=== PATIENT | female | born 1930 | race Caucasian/White ===

== ENCOUNTER 2018-10-12 06:46 | Inpatient (IN) | payer OTHER ==
[2018-10-01 09:30] LABS: ABSOLUTE BASOPHILS 0.1 thou/uL (0.0-0.2); ABSOLUTE EOSINOPHILS 0.1 thou/uL (0.0-0.7); ABSOLUTE LYMPHOCYTES 2.1 thou/uL (0.8-5.3); ABSOLUTE NEUTROPHILS 5.8 thou/uL (1.6-8.1); BASOPHILS 0.8 %; EOSINOPHILS 1.4 %; HEMATOCRIT 37.4 % (37.0-47.0); HEMOGLOBIN 12.2 gm/dL (12.0-15.0); LYMPHOCYTES 23.3 %; MCH 28.3 pg (26.0-34.0); MCHC 32.7 g/dL (28.0-37.0); MCV 86.7 fL (80.0-100.0); MONOCYTES 10.9 %; MPV 7.1 fl. (7.2-11.1); NUCLEATED RBCS 0 /100WBC; PLATELET COUNT* 358 thou/uL (150-400); POLYS 63.6 %; RBC 4.31 mil/uL (4.20-5.00); RDW-CV 15.1 % (10.5-14.5); WBC 9.1 thou/uL (4.0-11.0)
[2018-10-01 09:52] LABS: APTT 25.4 Seconds (25.0-31.3)
[2018-10-01 10:05] LABS: ALBUMIN 3.3 g/dL (3.4-5.0); CALCIUM 9.3 mg/dL (8.5-10.1); CREATININE 0.9 mg/dL (0.6-1.3); POTASSIUM 4.3 mmol/L (3.5-5.1); TOTAL BILIRUBIN 0.4 mg/dL (<0.1-1.0); TOTAL PROTEIN 6.8 g/dL (6.4-8.2)
[2018-10-01 10:48] LABS: ESR (SEDRATE) 30 mm/hr (0-30)
--- NOTE | 2018-10-01 13:46 | EKG ---
[place] [address] ELECTROCARDIOGRAM REPORT Name: HANDY RODRIGUEZ I Room: PRE IN [facility].#: [id number] Admission: Attend Phys: Jasbir Joiner Discharge: Date of : 32 Report #: [id number] THIS REPORT FOR: //name// [facility] Test Date: 2018-10-01 Test Time: 09:41:15 Pat Name: HANDY RODRIGUEZ Department: Room: Gender: F Cork Molder: : 1930 Requested By: Cody Mercado Order Number: [id number] Reading MD: Praneeth Rivera Measurements Intervals [place] Rate: 80 P: 36 CO: 204 QRS: 26 QRSD: 90 T: 38 QT: 382 QTc: 441 Interpretive Statements Sinus rhythm No previous ECG available for comparison Electronically Signed On 10-01-2018 13:45:57 CDT by Praneeth Rivera [email or web address] <ELECTRONICALLY SIGNED> By: Praneeth Rivera MD, [facility] 10/01/18 1345 0941 [id number] Praneeth Rivera MD, FACC /EPI
[~2018-10-12] VITALS: Ht 162.6 cm; Wt 59.0 kg
[~2018-10-12 06:46] MED LIST: ALOE VERA25 MG PO; ASPIRIN325 PO; COZAAR 25 MG TA25 M1 PO; NORVASC5 MG PO; PROBIOTIC1 EAC1 PO; SYNTHROID50 MCG PO; UNICOMPLEX M TA1 TA1 PO
[2018-10-12 10:32] VITALS: BP 134/74
--- NOTE | 2018-10-12 17:04 | NUR ---
PT ARRIVED ON UNIT FROM PACU AT 1640. PT A&Ox4. VITALS STABLE. ON 3LO2, CONTINUOUS PULSE OX IN PLACE. DRESSING IS CLEAN, DRY AND INTACT. TEDs, SCDs AND ICE PACK IN PLACE. NAUSEA AND PAIN CONTROLLED. IV IN L FA PATENT. CALL LIGHT WITHIN REACH. FALL PRECAUTIONS IN PLACE. WILL CONTINUE TO MONITOR.
[2018-10-12 20:15] VITALS: BP 126/59
[2018-10-12 23:32] VITALS: BP 102/53
--- NOTE | 2018-10-12 23:34 | NUR ---
INITAL ASSESMENT COMPLETED AT 2014. PT ASSISTED TO BEDSIDE COMMODE WITH GATE BELT AND WALKER. PT ON O2 AT 3 LITERS TO MAITAIN O2 SAT > 94%. PT POST OP ORIF OF RIGHT HIP. PT REPORTED SORE THROAT FROM ET TUBE. PAGED DR GARY AND RECIEVED ORDER FOR PRN CEPACOL LOZENGE AND CHLORACEPTIC SPRAY. PT GIVEN PRN OXYCODONE FOR PAIN WITH GOOD RESULTS. CALL LIGHT IN REACH, PT DEMONSTRATES PROPER USE.
[2018-10-13 00:34] VITALS: BP 109/57
[2018-10-13 04:00] VITALS: BP 107/56
[2018-10-13 05:21] LABS: HEMATOCRIT 30.5 % (37.0-47.0); HEMOGLOBIN 9.9 gm/dL (12.0-15.0)
--- NOTE | 2018-10-13 05:44 | NUR ---
PT PROGRESSING TOWARD GOALS. PT UP WITH ASSIST TO BEDSIDE COMMODE MULTIPLE TIMES DURING SHIFT. NO NAUSEA OR VOMITING DURING SHIFT. PT TAKING CLEAR LIQUIDS WITHOUT DIFFICULTY. PAIN CONTROLLED WITH PO MEDS. VITAL SIGNS WITHIN NORMAL LIMITS. WILL CONTINUE PLAN OF CARE.
[2018-10-13 08:00] VITALS: BP 118/61
--- NOTE | 2018-10-13 15:35 | NUR ---
SPOKE WITH PT.AND SON ,MG. PT.ALERT AND ORIENTED. SHE SAID SHE LIVES ALONE IN [place]. SHE IS GOING TO STAY WITH HER SON AND HIS TO RECUPERATE FROM HIP SURGERY. SHE HAS A SISTER AND OTHER RELATIVE THAT LIVES IN [place]. SHE SAID SHE AND HER SISTER TALK EVERY NIGHT ON THE PHONE. PT.STILL DRIVES AND IS INDEPENDENT WITH COOKING,LAUNDRY,SHOPPING ETC. SON WOULD LIKE HER TO USE [facility] ON [facility] FOR HER MEDS WHILE AT HIS HOME. CM WILL FOLLOW.
[2018-10-13 17:59] VITALS: BP 123/48
--- NOTE | 2018-10-13 18:53 | NUR ---
PT REMAINED A&Ox4. VITALS STABLE. IV IN L FA PATENT. DRESSING IS CLEAN, DRY AND INTACT. PAIN CONTROLLED WITH OXY IR. WORKED SOME WITH PT, NEEDS MORE WORK ON DISTANCE. ON 3LO2. CALL LIGHT WITHIN REACH. FALL PREACUTIONS IN PLACE.
[2018-10-13 19:45] VITALS: BP 123/44
--- NOTE | 2018-10-14 04:17 | NUR ---
ASSUMED CARE AT START OF SHIFT PT UP TO BSC WITH ASSIST NO CONCERNS VOICED DURING HOURLY ROUNDS. NO PAIN MEDICATION GIVEN THIS SHIFT , PT RESTING WELL THROUGHOUT HOURLY ROUNDS. DRESSING DRY AND INTACT TO HIP AREA.
[2018-10-14 04:49] LABS: HEMATOCRIT 23.7 % (37.0-47.0)
[2018-10-14 05:31] LABS: HEMOGLOBIN 7.9 gm/dL (12.0-15.0)
[2018-10-14 08:00] VITALS: BP 113/50
--- NOTE | 2018-10-14 18:15 | NUR ---
PT ALERT AND ORIENTED X 4. FORGETFUL @ TIMES. HARD OF HEARING. DENIES NAUSEA. DRESSING-C/D/I. RECEIVED PO OXYCODONE FOR PAIN RELIEF. PARTICIPATED WITH THERAPY DURING THE DAY. UP TO BSC X 1 WITH GAIT BELT. RECEIVED US IN AFTERNOON=NEG. THIGH HIGH TEDS BILAT. IV PATENT. OXYGEN @ 3 L/NC. PT WEARS SLEEVE ON RIGHT ARM FOR LYMPHADEMA. HOURLY ROUNDS MAINTAINED. CALL LIGHT WITHIN REACH.
[2018-10-15] VITALS (7 sets, daily range): BP systolic 102–139; BP diastolic 48–63
--- NOTE | 2018-10-15 06:01 | NUR ---
PATIENT HAS SLEPT WELL THROUGHOUT THE NIGHT. VSS ON 3L 02 VIA NASAL CANNULA. PAIN WELL CONTROLLED. DRESSING TO RIGHT HIP IS C/D/I, KEILA HOSE AND SCD'S IN PLACE. PATIENT IS UP WITH ASSIST X 1 WITH GAITBELT AND WALKER TO [facility]. IV IN LEFT FOREARM-SL. PATIENT INSTRUCTED TO USE CALL LIGHT WHEN NEEDING ASSISTANCE. HOURLY ROUNDS MADE. WILL CONTINUE WITH PLAN OF CARE AND NURSING TO MONITOR.
[2018-10-15 11:24] LABS: ABSOLUTE EOSINOPHILS 0.1 thou/uL (0.0-0.7); ABSOLUTE LYMPHOCYTES 1.5 thou/uL (0.8-5.3); ABSOLUTE MONOCYTES 1.5 thou/uL (0.0-1.2); ABSOLUTE NEUTROPHILS 8.7 thou/uL (1.6-8.1); BASOPHILS 0.4 %; EOSINOPHILS 1.2 %; HEMOGLOBIN 8.7 gm/dL (12.0-15.0); LYMPHOCYTES 12.8 %; MCH 29.4 pg (26.0-34.0); MCHC 33.4 g/dL (28.0-37.0); MCV 88.1 fL (80.0-100.0); MONOCYTES 12.5 %; MPV 7.3 fl. (7.2-11.1); NUCLEATED RBCS 0 /100WBC; PLATELET COUNT* 272 thou/uL (150-400); POLYS 73.1 %; RBC 2.95 mil/uL (4.20-5.00); RDW-CV 15.3 % (10.5-14.5); WBC 11.9 thou/uL (4.0-11.0)
[2018-10-15 11:30] LABS: CALCIUM 8.8 mg/dL (8.5-10.1); CREATININE 0.8 mg/dL (0.6-1.3); MAGNESIUM 1.9 mg/dL (1.8-2.4); POTASSIUM 4.5 mmol/L (3.5-5.1)
[2018-10-15 11:41] LABS: % SATURATION 4 % (20-39); IRON 9 ug/dL (50-175)
--- NOTE | 2018-10-15 14:41 | NUR ---
PT.'S FAMILY WOULD LIKE TO USE [facility] IN [facility] ON [address]. OBTAINED PT.'S MEDICATION INSURANCE CARD FROM PT.AND FAXED TO [facility] AT [employer] [facility]-[phone]. CALLED IN PRESCRIPTION FOR ELIQUIS WRITTEN TO [phone]. WILL CALL BACK FOR COPAY. SPOKE WITH [facility], CAROLYN. SHE SAID THEY WOULD LIKE THERAPY TO WORK WITH PT.ON GETTING IN AND OUT OF BED. INFORMED JLUIS/P.T. PT.AND FAMILY INFORMED THAT SHE WAS NOT DISCHARGING TODAY.
--- NOTE | 2018-10-15 17:28 | NUR ---
PT ALERT AND ORIENTED X 4. DENIES NAUSEA. RECEIVED OXYCODONE FOR PAIN OF RIGHT HIP. PARTICIPATED WITH THERAPIES DURING THE DAY. WAS ON OXYGEN @ 2 L/NC AT START OF SHIFT; CURRENTLY ON RA. REQUIRES MIN ASSIST WITH WALKER AND GAIT BELT FOR TRANSFERS AND AMBULATION. LABS DRAWN DURING DAY. IV PATENT. BED ALARM IN USE. MEPILEX DRESSING-C/D/I. HOURLY ROUNDS MAINTAINED. CALL LIGHT WITHIN REACH.
[2018-10-16] VITALS (7 sets, daily range): BP systolic 112–144; BP diastolic 48–54
--- NOTE | 2018-10-16 06:09 | NUR ---
Alert and oriented x 4. Rt anterior hip dressing clean,dry and intact. She is up with assist x 1 with walker and gaitbelt to the bathroom. She did have a temp of 99.9 at start of shift. Dr Miller was notified and order for tylenol was given. She's been afebrile since then. Also she had milk of mag and senakot at HS b/c she hasn't had a BM since 10/12. She had pain x 1. She has slept well.
[2018-10-16] MEDS ORDERED: ELIQUIS5 MG PO (10:43)
[2018-10-16] MEDS ORDERED: SENNA PLUS TAB1 EACH PO (10:43)
[2018-10-16] MEDS ORDERED: OXYCODONE HCL 55 MG PO (10:43)
--- NOTE | 2018-10-16 12:47 | NUR ---
Received order from physician to arrange home health. Pt states she plans on staying with her son and D-I-L in [place] on d/c from hospital. Pt was given choices and wants to use [facility]. Notified [facility] of d/c orders and they will contact pt re: visit time. No other needs identified.
--- NOTE | 2018-10-16 14:35 | NUR ---
PT GIVEN DISCHARGE INFORMATION, CARE NOTES, AND PRESCRIPTIONS. PT IV REMOVED. PT BELONGINGS GATHERED. PT LEFT VIA WHEELCHAIR WITH NURSING STAFF TO HOME WITH HOME HEALTH.
--- NOTE | 2018-10-19 15:48 | OP ---
[facility] [place] 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 OPERATION PERFORMED: Right total hip arthroplasty utilizing the anterior supine intermuscular approach. IMPLANTS UTILIZED: Are the followin. Taperloc porous-coated femoral component, 12 x 144 mm high offset. 2. A 36 mm ceramic head. 3. A G7, 52 mm acetabular shell. 4. A 36 mm G7 acetabular liner. 5. Two 6.5 mm bone screws, one which is 25 mm in length, the other 30 mm in length. 6. A +3 mm neck taper adapter. SURGEON: Cody Mercado DO PHYSICAL PLANT MANAGER: Jerome Forde DO SECOND PHYSICAL PLANT MANAGER: Mel Mercado DO ANESTHESIA: General plus local infiltration. ANTIBIOTICS: Ancef 2 grams IV. ESTIMATED BLOOD LOSS: 575 mL. FLUIDS: Lactated Ringer's. DRAINS: None. SPECIMENS: None. [address] [address] OPERATIVE REPORT Name: HANDY RODRIGUEZ I Room: [address] M.R.#: [id number] Admission: 10/12/18 Attend Phys: Jasbir Joiner Discharge: 10/16/18 Date of : 32 Report #: [id number] COMPLICATIONS: None. CONDITION: Stable. DISPOSITION: Stable to PACU to Med/Surg floor. INDICATIONS FOR PROCEDURE: The patient is a pleasant 87-year-old female who has been followed in the orthopedic clinic regarding her longstanding right hip pain. She has x-rays, which demonstrate severe degenerative joint disease including loss of joint space, subchondral sclerosis, osteophytic changes and subchondral cystic changes. We have discussed with her treatment options since she has failed nonoperative management over the last several years, including activity modifications, anti-inflammatories. Despite trying these things, she has continued to have significant pain which has impacted her quality of life. Therefore, we have discussed right total hip arthroplasty. Risks, indications and treatment alternatives were discussed in great detail in the office with her. The patient showed good understanding and elected to proceed with the operation today. OPERATION IN DETAIL: The patient was once again identified in the preoperative holding area where questions were answered. She correctly identified the right hip as the operative side and this was confirmed and marked. The patient was taken to the operating suite and placed on the [place] table in a supine position where general anesthesia was then induced. She was then placed within the foot holders, which were well padded in boots and a perineal post was placed. The patient was secured with a seatbelt and the hip was prepped and draped free. A timeout was then performed, everyone in room was in agreement to the correct patient, operative side, operation and should be given preoperative antibiotics. The anterior-superior iliac spine was then marked out. Surgical incision was marked out in a slightly oblique angle 2 cm posterior to the ASIS and just distal to it, extending longitudinally down the anterior aspect of the thigh. Sharp dissection was then carried down with scalpel through the skin and subcutaneous tissue. Electrocautery was used to maintain hemostasis. Lap sponge was used to clear the tensor fascia of overlying fat tissue and the interval between the tensor fascia danish and sartorius was palpated and the perforating vessels of the tensor fascia were identified and the tensor fascia was then incised just posterior to her interval and the fascia was incised proximally and then distally with scissors. The fascia was then bluntly dissected free from the underlying muscles and the interval between the tensor fascia danish and sartorius was developed. The circumflex vessels were identified and treated with Aquamantys. They were then cauterized. Retractors were then placed over the superior and inferior femoral neck as well as over the acetabular rim exposing the underlying hip capsule. This was then treated with Aquamantys and the standard capsulectomy was then performed and the femoral neck was then exposed. A standard femoral neck cut was then made from the saddle region down to 1 fingerbreadth proximal to the [place] [address] OPERATIVE REPORT Name: HANDY RODRIGUEZ I Room: [address] IN [facility].#: [id number] Admission: 10/12/18 Attend Phys: Jasbir Joiner Discharge: 03/29/19 Date of : 32 Report #: [id number] oscillating saw was then used to complete this cut and a napkin ring type cut was made proximal to this and this ring of bone was then removed. The femoral head was then removed with bone tenaculums. This was then measured on the back table. We then sequentially reamed the acetabulum starting with a 49 mm reamer up to a 51 and this was found to have good circumferential purchase. We then used C-arm fluoroscopy to confirm that the reamer was positioned correctly. The reamer was then continued down until we were near the inner table. The reamer was then removed and we confirmed that there was a good bleeding bone. A 52 mm shell was then impacted into position. This was confirmed to be in a correct abduction and anteversion with C-arm fluoroscopy as well as with our external guide. This was then impacted into position. Our guide was then removed. The drill holes were placed in the posterior-superior quadrant and 2 holes were then drilled through the shell and 2 bone screws were then placed holding the acetabular shell in excellent position. After the screws were placed, we then covered the manhole and then our acetabular liner was placed into position with the high wall directed anterosuperiorly. This was impacted into position. We then directed our attention to the proximal femur. Leg was extended and adducted and externally rotated. The box osteotome was then used to make entry into our intramedullary canal. This was followed by the rat-tail rasp. We then began sequentially broaching the femur starting with a size 4 broach. We did use the long implants. We sequentially broached the femur to a size 12. This was left slightly proud because her neck cut was found to be slightly short. A -3 trial head was placed on a high offset neck and this was reduced. We did use C-arm fluoroscopy to look at our leg lengths referencing the lesser trochanters and ischial tuberosities. We found that our operative side was approximately 6 mm short; therefore, we did dislocate and swap out the trial heads for a +3 mm head and re-reduced the hip. This was then found to give us excellent leg lengths, which were very near symmetrical within 1-2 mm. The operative side was then taken out of the boot and taken through a full range of motion and was found to be stable. The hip was then redislocated. The trial implants were then removed. The hip was thoroughly irrigated. The final femoral implant was then impacted into position, making sure to leave it in just a few millimeters proud as it was on a trial. This was found to give excellent purchase within the bone and was very stable. The final head was then placed and impacted onto the Santacruz taper and was found to be stable on the neck. I then performed a final reduction of the implants and once again took final fluoroscopy images to confirm our leg lengths and implant positioning, which were found to be excellent. The hip was then once again thoroughly irrigated. The remaining analgesic cocktail was injected into the deep and subcutaneous tissues. Vancomycin powder was then placed followed by topical TXA. This was allowed to bathe the tissue for 5 minutes. The tensor fascia was then closed with a running #1 Vicryl suture. The dermal layer was then closed with simple interrupted 2-0 Monocryl sutures in a buried fashion followed by 3-0 Stratafix on the skin. Skin glue was then placed over the skin and [place] [address] OPERATIVE REPORT Name: HANDY RODRIGUEZ Nicola Room: [address] IN [facility].#: [id number] Admission: 10/12/18 Attend Phys: Jasbir Joiner Discharge: 10/16/18 Date of : 32 Report #: [id number] Mepilex was applied. Sponge and needle counts were correct x 2. The patient was transferred to the PACU in a stable condition. <ELECTRONICALLY SIGNED> By: Cody Mercado DO 10/19/18 1548 1511 1621Robert Mercedes Mercado DO /vince
== END 2018-10-16 14:41 | disposition home health service (06) | DRG 470 ==
LOC: M.PRE 06:46 → M.ORTHSURG 09:16 → M.TBA 09:16 → M.PRE 11:02 → M.TBA 11:50 → M.PRE 12:33 → M.ORTHSURG 16:55
PROVIDERS: Family Medicine; Orthopaedic Surgery; ADMIT Internal Medicine
PROC: 0SR903Z Replacement of Right Hip Joint with Ceramic Synthetic Substitute, Open Approach (ICD-10-PCS; principal; 2018-10-12)
DX: M16.11 Unilateral primary osteoarthritis, right hip (principal); D62 Acute posthemorrhagic anemia; E03.9 Hypothyroidism, unspecified; I89.0 Lymphedema, not elsewhere classified; I10 Essential (primary) hypertension; D63.8 Anemia in other chronic diseases classified elsewhere; Z88.8 Allergy status to other drugs, medicaments and biological substances; Z86.73 Personal history of transient ischemic attack (TIA), and cerebral infarction without residual deficits; Z90.49 Acquired absence of other specified parts of digestive tract; Z90.710 Acquired absence of both cervix and uterus; Z90.11 Acquired absence of right breast and nipple